=== PATIENT | female | born 1955 | race Caucasian/White ===

== ENCOUNTER 2018-11-14 23:37 | Inpatient (IN) | payer BC, OTHER ==
[~2018-11-14] VITALS: Ht 154.9 cm; Wt 85.3 kg
[~2018-11-14 23:37] MED LIST: ASPI-498 OR; CHOL400C7 PO; FENO5TAB PO; METO25TA4 PO; MULT-351 PO; RANO500T2 PO; VITACAP46 OR
[2018-11-15 00:03] LABS: Basophils # (auto) 0.1 uL; Eosinophils # (auto) 0.1 uL; Hemoglobin 15.1 g/dL (12.2-16.2); Lymphocytes # (auto) 2.4 uL; Lymphocytes % (auto) 33.3 % (10.0-50.0); Mean Corpuscular Hemoglobin 30.9 pg (28.0-32.0); Mean Corpuscular Hgb Conc. 33.6 g/dL (32.0-36.0); Mean Corpuscular Volume 92.1 fL (80.0-100.0); Monocytes # (auto) 0.7 uL; Monocytes % (auto) 9.4 % (0.0-12.0); Neutrophils # (auto) 3.9 uL; Neutrophils % (auto) 54.3 % (37.0-80.0); Nucleated Red Blood Cells % 0.1 %; Platelet Count (auto) 251 10^3/uL (140-450); Red Blood Cells 4.89 10^6/uL (4.0-5.20); Red Cell Distribution Width 13.7 % (11.8-14.3); White Blood Cell 7.1 10^3/uL (4.4-10.8)
[2018-11-15 00:25] LABS: Albumin 3.6 g/dL (3.4-5.0); Anion Gap 9 (5-15); Blood Urea Nitrogen 17 mg/dL (7-18); Calcium 9.6 mg/dL (8.5-10.1); Carbon Dioxide 22 mmol/L (21-32); Chloride 112 mmol/L (98-107); Glucose 115 mg/dL (74-106); Magnesium 2.6 mg/dL (1.6-2.6); Potassium 3.7 mmol/L (3.5-5.1); Sodium 143 mmol/L (136-145)
[2018-11-15 00:28] LABS: Alanine Aminotransferase 34 U/L (13-56); Aspartate Aminotransferase 19 U/L (15-37); BUN/Creatinine Ratio 21.8; GFR African American 96 mL/min; GFR Non-African American 79 mL/min
[2018-11-15 00:33] LABS: Alkaline Phosphatase 44 U/L (45-117); Bilirubin, Total 0.2 mg/dL (0.2-1.0); Total Protein 7.7 g/dL (6.4-8.2)
[2018-11-15 00:53] LABS: Amphetamine Screen, Urine NEGATIVE (NEGATIVE); Barbiturate Scree,Urine NEGATIVE (NEGATIVE); Benzodiazephine Screen, Urine NEGATIVE (NEGATIVE); Cannabinoid Screen, Urine NEGATIVE (NEGATIVE); Cocaine Screen, Urine NEGATIVE (NEGATIVE); Opiate Scree,Urine NEGATIVE (NEGATIVE); Phencyclidine Screen, Urine NEGATIVE (NEGATIVE)
[2018-11-15] MEDS ORDERED: NITROGLYCERIN 0.4MG/HR TOPICAL PATCH TD ONE (01:45)
[2018-11-15] MEDS ORDERED: ASPirin-EC 325mg tab PO ONE (01:45)
[2018-11-15] MEDS ORDERED: KETOROLAC TROMETH 30 MG/ML 1ML VIAL IV ONE (05:00)
[2018-11-15] MEDS ORDERED: NITROGLYCERIN 0.4 MG SL TAB SL PRN (06:45)
[2018-11-15] MEDS: ENOXAPARIN SOD 60 MG/0.6 ML SYRINGE SC SCH ×2 (09:59→21:56)
[2018-11-15] MEDS: FENOFIBRATE 145 MG PO SCH (09:59)
[2018-11-15] MEDS: ASPirin-EC 81 mg tab PO SCH (09:59)
[2018-11-15] MEDS: RANOLAZINE ER 500 MG TAB PO SCH ×2 (09:59→21:55)
[2018-11-15] MEDS: METOPROLOL SUCCINATE XL 50 MG TAB PO SCH (09:59)
[2018-11-15] MEDS ORDERED: PATIENTS OWN MEDICATION (Metoprolol Succinate (Toprol Xl) 25 MG) PO SCH (10:00)
[2018-11-15] MEDS ORDERED: ASPirin 81 mg TAB PO SCH (10:00)
[2018-11-15] MEDS: MORPHINE SULF INJ 2 MG/ML SYRINGE 1ML IV PRN ×2 (10:10→16:57)
--- NOTE | 2018-11-15 17:55 | NUR ---
Telemetry admit from OUSMANE FERNANDEZ admitted to Telemetry unit after SBAR received. Patient oriented to Luly Kearney primary RN, unit, room, bed, and unit policies regarding patient care and visiting hours. Patient now on continuous telemetry monitoring, tele box # 3 and telemetry reading on arrival to unit is SR 65. Patient placed on bed side oxygen, weighed by bed scale and encouraged to call if they need something. All questions and concerns addressed, patient verbalized understanding. Patient instructed on POC, fall precautions and to call for assistance as needed. patient verbalized understanding. Fall precautions in place, call light within reach.
[2018-11-15] MEDS ORDERED: LORazepam 0.5 MG TAB PO PRN (19:00)
[2018-11-15] MEDS ORDERED: POM SC (19:04)
[2018-11-15] MEDS ORDERED: PROG200C6 PO (19:04)
--- NOTE | 2018-11-15 19:05 | NUR ---
End of shift patient resting in bed with fall precautions in place, call light within reach. Family at bedside.
--- NOTE | 2018-11-15 19:15 | NUR ---
Care endorsed to BENITA Frost.
--- NOTE | 2018-11-15 19:35 | NUR ---
Opening Shift Note Assumed care of patient, awake and alert oriented x4 with family at the bedside. No S/S of distress/SOB or pain noted. Bed is in lowest locked position with bed rails up x2 and call light is within reach of the patient. Instructed on POC and to call for assist PRN.
[2018-11-15 22:00] VITALS: BP 118/60
[2018-11-16 04:58] VITALS: BP 115/68
[2018-11-16 07:27] LABS: INR 0.95 (0.9-1.15); Partial Thromboplastin Time 23.8 sec (23.78-33.04); Prothrombin Time 10.2 sec (9.27-12.13)
--- NOTE | 2018-11-16 07:35 | NUR ---
Opening Shift Note Assumed care of patient, awake and alert. No S/S of distress/SOB or pain. NPO prior [facility]. Insructed on POC and to call for assist PRN, bed locked in the lowest position, call light within easy reach, will continue to monitor for changes Q1hr and PRN.
--- NOTE | 2018-11-16 07:48 | NUR ---
Closing note: Patient is resting in bed breaths even and unlabored no s/s of distress sob noted with bed in lowest locked position, bed rails up x2. Call light is within reach of the patient. Care endorsed to day shift nurse.
[2018-11-16 08:00] VITALS: BP 129/73
--- NOTE | 2018-11-16 08:30 | NUR ---
PT C/O HEADACHE 05/02. DR. BLUE NOTIFIED. NEW ORDER OBTAINED TYLENOL 650MG PO QID PRN. WILL CARRY OUT ORDER.
[2018-11-16 09:00] VITALS: BP 116/71
[2018-11-16] MEDS ORDERED: ACETAMINOPHEN 325 MG TAB PO PRN (09:00)
[2018-11-16] MEDS: ASPirin-EC 81 mg tab PO SCH (09:12)
[2018-11-16] MEDS: RANOLAZINE ER 500 MG TAB PO SCH (09:12)
[2018-11-16] MEDS: ENOXAPARIN SOD 60 MG/0.6 ML SYRINGE SC SCH (09:13)
[2018-11-16] MEDS: FENOFIBRATE 145 MG PO SCH (09:16)
[2018-11-16] MEDS: METOPROLOL SUCCINATE XL 50 MG TAB PO SCH (09:16)
[2018-11-16 10:38] VITALS: BP 129/73
[2018-11-16 12:02] VITALS: BP 109/66
--- NOTE | 2018-11-16 12:12 | NUR ---
PT OFF UNIT TO SERVICE TESTER FOR [facility], VS: 98.2, 61, 18, 129/73, 98% ON 2L, 0/10. NO ACUTE DISTRESS NOTED AT DEPARTURE.
[2018-11-16] MEDS ORDERED: IOHEXOL 350 MG/ML 100ML IJ ONE (12:32)
[2018-11-16] MEDS ORDERED: LIDOCAINE 2%HCL (LOCAL ANESTH.) INJ 20ML MDV ONE (12:32)
[2018-11-16] MEDS ORDERED: MIDAZOLAM HCL 1MG/1ML-2 ML VIAL ONE (12:36)
[2018-11-16] MEDS ORDERED: SODIUM CHL 0.9% 0 ML ONE (12:36)
[2018-11-16] MEDS ORDERED: fentaNYL CITRATE 100 MCG/2 ML VL ONE (12:36)
[2018-11-16] MEDS ORDERED: ANGIOMAX 250 MG VIAL IV ONE (12:36)
--- NOTE | 2018-11-16 14:15 | NUR ---
PT BACK TO ROOM. S/P LEFT HEART CATH. AOX4, BREATHING EVEN UNLABORED, S1, S2, DRESSING TO RIGHT GROIN CLEAN/DRY/INTACT NO BLEEDING, NO BRUISING NOTED. PT IS INSTRUCTED TO BE FLAT IN BED UNTIL 1500. VERBALIZED UNDERSTANDING. VS: 98.1, 60, 18, 125/82, 0/10.
--- NOTE | 2018-11-16 14:45 | NUR ---
Pt resting in bed, family at bedside. Pedal pulses on right leg assessed for positive tissue perfusion. Patient instructed on need to notify staff immediately if any pain, burning or wetness to site, and any lower back pain. All questions and concerns addressed, patient verbalized understanding of all education and instruction. VS wnl, will continue to monitor.
[2018-11-16 16:43] VITALS: BP 117/73
--- NOTE | 2018-11-16 18:59 | NUR ---
Discharge instructions given as ordered. Encourage to follow up with DR. BLUE ON 11/28/18 as instructed. All questions and concerns addressed. Patient verbalized understanding. Medication reconciliation form completed and copy given to patient. IV removed with catheter intact, pressure dressing applied. Telemetry unit returned to [facility]. Patient taken to vehicle via wheelchair with all personal belongings, accompanied by staff and family member. No distress noted at time of departure.
== END 2018-11-16 18:50 | disposition home or self-care (01) | DRG 287 ==
LOC: ER 23:39 → TELE 11-15 06:50 → TELE-WESTW 11-15 17:55
PROVIDERS: ADMIT Emergency Medicine; ATTEND Internal Medicine Cardiovascular Disease
PROC: 4A023N7 Measurement of Cardiac Sampling and Pressure, Left Heart, Percutaneous Approach (ICD-10-PCS; principal; 2018-11-16)
PROC: B2111ZZ Fluoroscopy of Multiple Coronary Arteries using Low Osmolar Contrast (ICD-10-PCS; 2018-11-16)
PROC: B2151ZZ Fluoroscopy of Left Heart using Low Osmolar Contrast (ICD-10-PCS; 2018-11-16)
DX: I20.9 Angina pectoris, unspecified (principal); E66.9 Obesity, unspecified; E78.5 Hyperlipidemia, unspecified; I10 Essential (primary) hypertension; M81.0 Age-related osteoporosis without current pathological fracture; R07.89 Other chest pain; Z88.0 Allergy status to penicillin; Z88.8 Allergy status to other drugs, medicaments and biological substances
CPT/HCPCS: 36415; 80053; 80307; 80320; 83735; 83880; 84443; 84484; 85025; 85610; 85730; 86850; 86900; 86901; 93005; 96374; 96375; 99152; A6257; G0378; J1885; J2250